=== PATIENT | male | born 1980 | race African-American/Black ===

== ENCOUNTER 2016-11-19 05:27 | Emergency (ER) | payer SELFPAY ==
[~2016-11-19] VITALS: Ht 172.7 cm; Wt 117.9 kg
--- NOTE | 2016-11-19 05:30 | NUR ---
Dr Rizzo at bedside.
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
--- NOTE | 2016-11-19 05:43 | NUR ---
patient to ct.
--- NOTE | 2016-11-19 06:22 | NUR ---
Patient discharged to home in stable condition. Written and verbal after care instructions given. Patient verbalizes understanding of instruction. Patient is ambulatory with steady gait, no further complaints.
[2016-11-19 06:23] VITALS: BP 129/74
== END 2016-11-19 06:23 | disposition home or self-care (01) ==
LOC: ER 05:29 → EDSEX 05:29 → ER 06:23
DX: S09.90XA Unspecified injury of head, initial encounter (principal); V79.69XA Unspecified bus occupant injured in collision with other motor vehicles in traffic accident, initial encounter; Y93.89 Activity, other specified; Y92.89 Other specified places as the place of occurrence of the external cause; Y99.9 Unspecified external cause status
CPT/HCPCS: 70450-TC; A4606; Z7610